=== PATIENT | female | born 1940 | race Two or more races ===

== ENCOUNTER 2022-01-14 10:29 | Inpatient (IN) | payer MEDICARE ==
[~2022-01-14] VITALS: Ht 149.9 cm; Wt 80.6 kg
[2022-01-14 12:07] LABS: Basophils # (auto) 0 10 ^3/uL (0-0.2); Basophils % (auto) 0.3 % (0.0-2.0); Eosinophils # (auto) 0 10 ^3/uL (0-0.8); Eosinophils % (auto) 0.1 % (0.0-7.0); Hematocrit 23.3 % (36.0-46.0); Hemoglobin 7.8 g/dL (12.2-16.2); Lymphocytes # (auto) 0.6 10 ^3/uL (0.4-5.4); Lymphocytes % (auto) 5.6 % (10.0-50.0); Mean Corpuscular Hemoglobin 33.3 pg (28.0-32.0); Mean Corpuscular Hgb Conc. 33.6 g/dL (32.0-36.0); Monocytes # (auto) 0.5 10 ^3/uL (0-1.3); Monocytes % (auto) 4.7 % (0.0-12.0); Neutrophils # (auto) 9.2 10 ^3/uL (1.6-8.6); Neutrophils % (auto) 89.3 % (37.0-80.0); Red Blood Cells 2.35 10^6/uL (4.0-5.20); Red Cell Distribution Width 16.4 % (11.8-14.3); White Blood Cell 10.3 10^3/uL (4.4-10.8)
[2022-01-14 12:10] LABS: Albumin 3.1 g/dL (3.4-5.0); BUN/Creatinine Ratio 25.3
[2022-01-14 12:13] LABS: Bilirubin, Total 0.8 mg/dL (0.2-1.0); Potassium 3.2 mmol/L (3.5-5.1); Total Protein 7.7 g/dL (6.4-8.2)
[2022-01-14] MEDS ORDERED: levoFLOXacin 500MG 100 ML IV ONE (14:30)
[2022-01-14 16:39] LABS: Urine Bacteria MOD /hpf (None Seen); Urine Blood 3+ /uL (Negative); Urine Budding Yeast OCCASIONAL /hpf (None Seen); Urine WBC 3727 /hpf (0 - 5)
[2022-01-14] MEDS ORDERED: DEXTROSE (50%) 50ML SYRG IV PRN (17:15)
[2022-01-14 19:23] LABS: Cholesterol 107 mg/dL (< 200); HDL Cholesterol 31 mg/dL (40-59); LDL Cholesterol 61 mg/dL (< 100); Triglycerides 83 mg/dL (< 150)
[2022-01-14] MEDS ORDERED: ALBUMIN 5% 250 ML IV ONE (20:45)
[2022-01-14] MEDS: InsuLIN REG 1unit/0.01ml Soln (100units/ml) SC SCH (22:00)
[2022-01-14] MEDS: ACCU-CHEK COMFORT CURVE STRIP VI SCH (22:09)
[2022-01-14] MEDS: HEPARIN SODIUM (PORCINE) 5000 UNITS/ML 1ML VIAL SC SCH (22:16)
[2022-01-14 23:00] VITALS: BP 100/49
[2022-01-15] VITALS (16 sets, daily range): BP systolic 74–104; BP diastolic 13–61
[2022-01-15 06:45] LABS: Albumin 2.8 g/dL (3.4-5.0); BUN/Creatinine Ratio 25.1; Bilirubin, Total 0.7 mg/dL (0.2-1.0); Calcium 8.2 mg/dL (8.5-10.1); Total Protein 6.8 g/dL (6.4-8.2)
[2022-01-15] MEDS: InsuLIN REG 1unit/0.01ml Soln (100units/ml) SC SCH ×4 (06:52→22:01)
[2022-01-15] MEDS: ACCU-CHEK COMFORT CURVE STRIP VI SCH ×4 (06:52→22:00)
[2022-01-15] MEDS ORDERED: SODIUM CHL 0.9% 1000 ML BAG XX ONE (07:00)
[2022-01-15] MEDS ORDERED: ALBUMIN 25% 100 ML IV PRN (07:15)
[2022-01-15 07:22] LABS: Basophils # (auto) 0 10 ^3/uL (0-0.2); Eosinophils # (auto) 0.1 10 ^3/uL (0-0.8); Lymphocytes # (auto) 0.7 10 ^3/uL (0.4-5.4); Lymphocytes % (auto) 14.2 % (10.0-50.0); Monocytes # (auto) 0.4 10 ^3/uL (0-1.3); Red Cell Distribution Width 16.5 % (11.8-14.3)
[2022-01-15 07:26] LABS: Basophils % (auto) 0.5 % (0.0-2.0); Hematocrit 19.2 % (36.0-46.0); Mean Corpuscular Hemoglobin 35.7 pg (28.0-32.0); Mean Corpuscular Hgb Conc. 34.6 g/dL (32.0-36.0); Monocytes % (auto) 8.5 % (0.0-12.0); Neutrophils % (auto) 75.8 % (37.0-80.0); Nucleated Red Blood Cells % 0.2 %; Red Blood Cells 1.85 10^6/uL (4.0-5.20); White Blood Cell 5.3 10^3/uL (4.4-10.8)
[2022-01-15 08:08] LABS: Hemoglobin 6.6 g/dL (12.2-16.2); Mean Corpuscular Volume 103.3 fL (80.0-100.0)
[2022-01-15] MEDS: cefTRIAXone 1GM/50ML D5W 50 ML IV SCH (09:00)
[2022-01-15] MEDS: HEPARIN SODIUM (PORCINE) 5000 UNITS/ML 1ML VIAL SC SCH ×2 (10:00→21:50)
[2022-01-15] MEDS: SODIUM CHLORIDE 0.9% 1,000 ML IV SCH (17:15)
[2022-01-15] MEDS: ACETAMINOPHEN 325 MG TAB PO PRN ×2 (19:30→21:03)
[2022-01-15] MEDS ORDERED: MID10T PO (20:06)
[2022-01-15] MEDS ORDERED: HYDR-4924 PO (20:19)
[2022-01-15] MEDS ORDERED: ASPI1TAB19 PO (20:19)
[2022-01-15] MEDS ORDERED: METO25TA36 PO (20:19)
[2022-01-15] MEDS ORDERED: ATO40T PO (20:19)
[2022-01-15] MEDS ORDERED: INSLISPI SC (20:57)
[2022-01-15] MEDS ORDERED: INSLANTI SC (20:57)
[2022-01-15 21:48] LABS: Hemoglobin 8.5 g/dL (12.2-16.2)
[2022-01-15] MEDS ORDERED: MIDODRINE HCL 10 MG TAB PO ONE (22:00)
[2022-01-16 05:54] VITALS: BP 106/17
[2022-01-16] MEDS: ACCU-CHEK COMFORT CURVE STRIP VI SCH ×4 (06:37→21:03)
[2022-01-16] MEDS: SODIUM CHLORIDE 0.9% 1,000 ML IV SCH ×2 (06:37→19:55)
[2022-01-16] MEDS: InsuLIN REG 1unit/0.01ml Soln (100units/ml) SC SCH ×4 (06:38→21:05)
[2022-01-16 07:49] VITALS: BP 106/52
[2022-01-16] MEDS: cefTRIAXone 1GM/50ML D5W 50 ML IV SCH (09:00)
[2022-01-16] MEDS: HEPARIN SODIUM (PORCINE) 5000 UNITS/ML 1ML VIAL SC SCH ×2 (10:00→21:03)
[2022-01-16] MEDS: MIDODRINE HCL 10 MG TAB PO SCH ×2 (10:00→17:00)
[2022-01-16] MEDS ORDERED: ONDANSETRON HCL 4 MG/2 ML VIAL IV PRN (10:30)
[2022-01-16] MEDS ORDERED: ZOLPIDEM TARTRATE 5 MG TAB PO PRN (10:30)
[2022-01-16 12:34] VITALS: BP 100/45
[2022-01-16 17:00] VITALS: BP 102/57
[2022-01-16] MEDS: MUPIROCIN 2% OINT 15gm or 22gm EACHNOSTRI SCH (20:51)
[2022-01-16 22:00] VITALS: BP 115/77
[2022-01-17 05:00] VITALS: BP 140/63
[2022-01-17] MEDS: InsuLIN REG 1unit/0.01ml Soln (100units/ml) SC SCH ×3 (06:48→16:51)
[2022-01-17] MEDS: ACCU-CHEK COMFORT CURVE STRIP VI SCH ×3 (06:48→16:51)
[2022-01-17] MEDS ORDERED: SODIUM CHL 0.9% 1000 ML BAG XX ONE (07:00)
[2022-01-17] MEDS ORDERED: Glucerna Carbsteady SHAKE Vanilla 8oz PO SCH (08:00)
[2022-01-17] MEDS: Glucerna Carbsteady SHAKE Stawberry 8oz PO SCH ×3 (08:00→12:00)
[2022-01-17] MEDS ORDERED: Glucerna Carbsteady SHAKE Chocolate 8oz PO SCH (08:00)
[2022-01-17 08:37] VITALS: BP 116/54
[2022-01-17] MEDS: cefTRIAXone 1GM/50ML D5W 50 ML IV SCH (10:04)
[2022-01-17] MEDS: MIDODRINE HCL 10 MG TAB PO SCH ×2 (10:05→16:51)
[2022-01-17] MEDS: SODIUM CHLORIDE 0.9% 1,000 ML IV SCH (10:05)
[2022-01-17] MEDS: MUPIROCIN 2% OINT 15gm or 22gm EACHNOSTRI SCH (10:05)
[2022-01-17] MEDS: HEPARIN SODIUM (PORCINE) 5000 UNITS/ML 1ML VIAL SC SCH (10:07)
[2022-01-17] MEDS ORDERED: LEVO500T31 PO (10:38)
[2022-01-17] MEDS ORDERED: FERR-7 PO (10:38)
[2022-01-17 13:00] VITALS: BP 135/46
[2022-01-17 15:22] VITALS: BP 116/54
[2022-01-17 15:57] LABS: Hematocrit 25.7 % (36.0-46.0); Hemoglobin 8.6 g/dL (12.2-16.2)
[2022-01-17] MEDS ORDERED: EPOETIN ALFA-EPBX 10,000 UNIT/1ML VIAL SC ONE (21:00)
== END 2022-01-17 17:19 | disposition home health service (06) | DRG 871 ==
LOC: EDBD 10:29 → ER 10:29 → TELE 17:07 → TELE-WESTW 23:00
PROVIDERS: ADMIT Registered Nurse; ATTEND Family Medicine
PROC: 5A1D70Z Performance of Urinary Filtration, Intermittent, Less than 6 Hours Per Day (ICD-10-PCS; 2022-01-15)
PROC: B54NZZA Ultrasonography of Left Upper Extremity Veins, Guidance (ICD-10-PCS; 2022-01-15)
PROC: 30233N1 Transfusion of Nonautologous Red Blood Cells into Peripheral Vein, Percutaneous Approach (ICD-10-PCS; 2022-01-15)
PROC: 5A1D70Z Performance of Urinary Filtration, Intermittent, Less than 6 Hours Per Day (ICD-10-PCS; principal; 2022-01-17)
DX: A41.9 Sepsis, unspecified organism (principal); N18.6 End stage renal disease; R65.21 Severe sepsis with septic shock; N39.0 Urinary tract infection, site not specified; I13.2 Hypertensive heart and chronic kidney disease with heart failure and with stage 5 chronic kidney disease, or end stage renal disease; I50.9 Heart failure, unspecified; E88.09 Other disorders of plasma-protein metabolism, not elsewhere classified; D63.8 Anemia in other chronic diseases classified elsewhere; Z20.822 Contact with and (suspected) exposure to COVID-19; E11.40 Type 2 diabetes mellitus with diabetic neuropathy, unspecified; E11.22 Type 2 diabetes mellitus with diabetic chronic kidney disease; I08.0 Rheumatic disorders of both mitral and aortic valves; E11.21 Type 2 diabetes mellitus with diabetic nephropathy; E66.9 Obesity, unspecified; F03.90 Unspecified dementia, unspecified severity, without behavioral disturbance, psychotic disturbance, mood disturbance, and anxiety; I25.10 Atherosclerotic heart disease of native coronary artery without angina pectoris; Z99.2 Dependence on renal dialysis; Z95.1 Presence of aortocoronary bypass graft; Z79.84 Long term (current) use of oral hypoglycemic drugs; Z95.0 Presence of cardiac pacemaker; Z68.33 Body mass index [BMI] 33.0-33.9, adult
CPT/HCPCS: 36415; 70450; 71045; 80053; 80061; 81001; 82270; 82962; 83036; 83605; 83880; 84484; 85014; 85018; 85025; 86850; 86900; 86901; 86920; 87040; 87081; 87086; 90935; 93005; 93306; 93886; 96365; 96367; G0378; J0696; J1642; J1815; J1956; P9047

== ENCOUNTER 2022-02-26 18:47 | Inpatient (IN) | payer MEDICARE ==
[~2022-02-26] VITALS: Ht 154.9 cm; Wt 88.7 kg
[~2022-02-26 18:47] MED LIST: ASPI1TAB19 PO; ATO40T PO; FERR-7 PO; HYDR-4924 PO; INSLANTI SC; INSLISPI SC; LEVO500T31 PO; METO25TA36 PO; MID10T PO
[2022-02-26] MEDS ORDERED: cefTRIAXone 1GM/50ML D5W 50 ML IV ONE (19:45)
[2022-02-26 19:49] LABS: Basophils # (auto) 0.1 10 ^3/uL (0-0.2); Basophils % (auto) 1.7 % (0.0-2.0); Eosinophils # (auto) 0 10 ^3/uL (0-0.8); Eosinophils % (auto) 0.4 % (0.0-7.0); Hematocrit 29.4 % (36.0-46.0); Hemoglobin 9.8 g/dL (12.2-16.2); Lymphocytes # (auto) 0.6 10 ^3/uL (0.4-5.4); Lymphocytes % (auto) 8.3 % (10.0-50.0); Mean Corpuscular Hemoglobin 33.7 pg (28.0-32.0); Mean Corpuscular Hgb Conc. 33.2 g/dL (32.0-36.0); Mean Corpuscular Volume 101.5 fL (80.0-100.0); Monocytes # (auto) 0.7 10 ^3/uL (0-1.3); Monocytes % (auto) 10.2 % (0.0-12.0); Neutrophils # (auto) 5.6 10 ^3/uL (1.6-8.6); Neutrophils % (auto) 79.4 % (37.0-80.0); Nucleated Red Blood Cells % 0.1 %; Red Blood Cells 2.89 10^6/uL (4.0-5.20); Red Cell Distribution Width 17.9 % (11.8-14.3)
[2022-02-26 20:08] LABS: Albumin 2.8 g/dL (3.4-5.0); Anion Gap 8 (5-15); BUN/Creatinine Ratio 12.6; Blood Urea Nitrogen 29 mg/dL (7-18); Carbon Dioxide 31 mmol/L (21-32); Chloride 96 mmol/L (98-107); GFR African American 26 mL/min; GFR Non-African American 22 mL/min; Glucose 168 mg/dL (74-106); Sodium 135 mmol/L (136-145)
[2022-02-26 20:23] LABS: Alanine Aminotransferase 22 U/L (13-56); Alkaline Phosphatase 147 U/L (45-117); Aspartate Aminotransferase 35 U/L (15-37); Bilirubin, Total 0.6 mg/dL (0.2-1.0); Total Protein 6.9 g/dL (6.4-8.2)
[2022-02-26 20:28] LABS: Potassium 2.7 mmol/L (3.5-5.1)
[2022-02-26] MEDS ORDERED: POTASSIUM CHL 20MEQ/100ML 100 ML IV ONE (21:00)
[2022-02-26] MEDS ORDERED: SODIUM CHLORIDE 0.9% 1,000 ML IV ONE ×2 (21:15)
[2022-02-27] VITALS (33 sets, daily range): BP systolic 98–157; BP diastolic 16–130
[2022-02-27] MEDS ORDERED: NITROGLYCERIN 0.4 MG SL TAB SL PRN
[2022-02-27] MEDS ORDERED: DEXTROSE (50%) 50ML SYRG IV PRN
[2022-02-27] MEDS ORDERED: MORPHINE SULFATE INJ 2 MG/ml SYRG IV PRN
[2022-02-27] MEDS ORDERED: ONDANSETRON HCL 4 MG/2 ML VIAL IV PRN
[2022-02-27] MEDS ORDERED: ACETAMINOPHEN 325 MG TAB PO PRN
[2022-02-27] MEDS ORDERED: NOREPINEPHRINE 8 MG/250ML KIT 0 ML IV ONE (03:48)
[2022-02-27] MEDS ORDERED: ALBUMIN 5% 250 ML IV ONE (04:00)
[2022-02-27] MEDS: PHENYLEPHRINE IV 250 ML IV SCH ×2 (04:45→10:01)
[2022-02-27 05:43] LABS: Basophils # (auto) 0 10 ^3/uL (0-0.2); Basophils % (auto) 0.4 % (0.0-2.0); Eosinophils # (auto) 0 10 ^3/uL (0-0.8); Eosinophils % (auto) 0.3 % (0.0-7.0); Hematocrit 28.7 % (36.0-46.0); Hemoglobin 9.6 g/dL (12.2-16.2); Lymphocytes # (auto) 0.6 10 ^3/uL (0.4-5.4); Lymphocytes % (auto) 7.1 % (10.0-50.0); Mean Corpuscular Hemoglobin 34.3 pg (28.0-32.0); Mean Corpuscular Hgb Conc. 33.6 g/dL (32.0-36.0); Monocytes # (auto) 0.6 10 ^3/uL (0-1.3); Neutrophils % (auto) 85.2 % (37.0-80.0); Nucleated Red Blood Cells % 0.2 %; Red Blood Cells 2.81 10^6/uL (4.0-5.20); White Blood Cell 8.2 10^3/uL (4.4-10.8)
[2022-02-27 06:02] LABS: Albumin 3.2 g/dL (3.4-5.0); BUN/Creatinine Ratio 12.7; Calcium 8.2 mg/dL (8.5-10.1)
[2022-02-27 06:06] LABS: Bilirubin, Total 0.6 mg/dL (0.2-1.0); Total Protein 6.8 g/dL (6.4-8.2)
[2022-02-27 06:46] LABS: Lactic Acid w/Reflex 2.3 mmol/L (0.4-2.0)
[2022-02-27] MEDS: InsuLIN REG 1unit/0.01ml Soln (100units/ml) SC SCH ×4 (07:04→21:23)
[2022-02-27] MEDS: ACCU-CHEK COMFORT CURVE STRIP VI SCH ×4 (07:05→21:23)
[2022-02-27] MEDS: cefTRIAXone 1GM/50ML D5W 50 ML IV SCH (09:59)
[2022-02-27] MEDS: PANTOPRAZOLE 40 MG TAB PO SCH (10:00)
[2022-02-27] MEDS ORDERED: MIDODRINE HCL 10 MG TAB PO SCH (10:00)
[2022-02-27] MEDS: ASPirin 81 mg TAB PO SCH (10:00)
[2022-02-27] MEDS ORDERED: POTASSIUM CHL 20MEQ/100ML 100 ML IV ONE (11:30)
[2022-02-27] MEDS ORDERED: NOREPINEPHRINE 8 MG/250ML KIT 250 ML IV ONE (11:34)
[2022-02-27] MEDS: SODIUM CHLORIDE 0.9% 1,000 ML IV SCH (11:43)
[2022-02-27] MEDS: NOREPINEPHRINE 8 MG/250ML KIT 250 ML IV SCH (12:05)
[2022-02-27] MEDS ORDERED: VANCOMYCIN 1GM/250ML 250 ML IV ONE (15:00)
[2022-02-27] MEDS ORDERED: SODIUM CHLORIDE 0.9% 500 ML IV ONE (15:00)
[2022-02-27 15:12] LABS: Urine Bacteria MOD /hpf (None Seen); Urine Blood 2+ /uL (Negative); Urine Budding Yeast MODERATE /hpf (None Seen); Urine Specific Gravity 1.023 (1.001-1.035); Urine WBC 12 /hpf (0 - 5)
[2022-02-27] MEDS: PHENYLEPHRINE INJ 80 MG in SODIUM CHL 0.9% 242 ML IV SCH (16:14)
[2022-02-27] MEDS ORDERED: ATORVASTATIN 20 MG TAB PO SCH (22:00)
[2022-02-28] VITALS (66 sets, daily range): BP systolic 82–166; BP diastolic 12–93
[2022-02-28] MEDS: SODIUM CHLORIDE 0.9% 1,000 ML IV SCH ×2 (02:00→04:10)
[2022-02-28] MEDS: NOREPINEPHRINE 8 MG/250ML KIT 250 ML IV SCH ×2 (04:18→23:55)
[2022-02-28 05:37] LABS: Basophils # (auto) 0 10 ^3/uL (0-0.2); Basophils % (auto) 0.5 % (0.0-2.0); Eosinophils # (auto) 0 10 ^3/uL (0-0.8); Hemoglobin 10.1 g/dL (12.2-16.2); Lymphocytes # (auto) 0.8 10 ^3/uL (0.4-5.4); Monocytes # (auto) 0.7 10 ^3/uL (0-1.3)
[2022-02-28 05:41] LABS: Eosinophils % (auto) 0.2 % (0.0-7.0); Hematocrit 30.1 % (36.0-46.0); Lymphocytes % (auto) 9.7 % (10.0-50.0); Mean Corpuscular Hemoglobin 34.4 pg (28.0-32.0); Mean Corpuscular Hgb Conc. 33.6 g/dL (32.0-36.0); Mean Corpuscular Volume 102.5 fL (80.0-100.0); Monocytes % (auto) 9.1 % (0.0-12.0); Neutrophils # (auto) 6.4 10 ^3/uL (1.6-8.6); Neutrophils % (auto) 80.5 % (37.0-80.0); Nucleated Red Blood Cells % 0.1 %; Red Blood Cells 2.93 10^6/uL (4.0-5.20); Red Cell Distribution Width 17.7 % (11.8-14.3)
[2022-02-28 05:52] LABS: INR 1.57 (0.9-1.15)
[2022-02-28] MEDS: ACCU-CHEK COMFORT CURVE STRIP VI SCH ×4 (06:41→21:56)
[2022-02-28] MEDS: InsuLIN REG 1unit/0.01ml Soln (100units/ml) SC SCH ×4 (06:42→22:00)
[2022-02-28] MEDS ORDERED: SODIUM CHL 0.9% 1000 ML BAG XX ONE (07:00)
[2022-02-28 09:28] LABS: Albumin 3.1 g/dL (3.4-5.0); Magnesium 2.1 mg/dL (1.6-2.6); Potassium 3.4 mmol/L (3.5-5.1)
[2022-02-28 09:35] LABS: BUN/Creatinine Ratio 11.9; Bilirubin, Total 0.7 mg/dL (0.2-1.0)
[2022-02-28] MEDS: ASPirin 81 mg TAB PO SCH (10:00)
[2022-02-28] MEDS: PANTOPRAZOLE 40 MG TAB PO SCH (10:00)
[2022-02-28] MEDS: cefTRIAXone 1GM/50ML D5W 50 ML IV SCH (11:44)
[2022-02-28] MEDS: PHENYLEPHRINE INJ 80 MG in SODIUM CHL 0.9% 242 ML IV SCH (12:15)
[2022-02-28] MEDS ORDERED: POTASSIUM CHL 20MEQ/100ML 100 ML IV ONE (13:30)
[2022-02-28] MEDS ORDERED: LORazepam 2MG/ML-1ML VIAL ONE (16:23)
[2022-02-28] MEDS ORDERED: MORPHINE SULFATE INJ 2 MG/ml SYRG ONE (16:23)
[2022-02-28] MEDS ORDERED: MORPHINE SULFATE INJ 2 MG/ml SYRG IV ONE (16:30)
[2022-02-28] MEDS ORDERED: LORazepam 2MG/ML-1ML VIAL IV ONE (16:30)
[2022-02-28] MEDS ORDERED: EPOETIN ALFA-EPBX 4,000 UNIT/ML VIAL SC ONE (21:00)
[2022-02-28] MEDS ORDERED: ALBUMIN 5% 250 ML IV ONE (23:15)
[2022-03-01] VITALS (63 sets, daily range): BP systolic 72–138; BP diastolic 12–24
[2022-03-01] MEDS ORDERED: PHENYLEPHRINE IV 250 ML IV ONE (02:12)
[2022-03-01] MEDS ORDERED: PHENYLEPHRINE HCL 10 MG/ML VL ONE ×2 (02:15→02:21)
[2022-03-01] MEDS: NOREPINEPHRINE 8 MG/250ML KIT 250 ML IV SCH (04:30)
[2022-03-01] MEDS: InsuLIN REG 1unit/0.01ml Soln (100units/ml) SC SCH ×3 (06:32→17:33)
[2022-03-01] MEDS: ACCU-CHEK COMFORT CURVE STRIP VI SCH ×3 (06:32→17:34)
[2022-03-01] MEDS ORDERED: PHENYLEPHRINE INJ 40 MG in SODIUM CHL 0.9% 246 ML IV SCH (08:00)
[2022-03-01] MEDS ORDERED: ETOMIDATE (2MG/ML) 20ML VIAL IV ONE ×2 (09:13→09:15)
[2022-03-01] MEDS: NOREPINEPHRINE BITARTRATE 16 MG in SODIUM CHL 0.9% 234 ML IV SCH ×2 (09:15→17:55)
[2022-03-01] MEDS ORDERED: fentaNYL Drip 2500mCg/250mlNS 250 ML IV ONE (09:20)
[2022-03-01] MEDS ORDERED: PROPOFOL 100 ML IV ONE (09:20)
[2022-03-01] MEDS ORDERED: VASOPRESSIN 50 UNITS in D5W 5% 247.5 ML IV SCH (09:45)
[2022-03-01] MEDS: ASPirin 81 mg TAB PO SCH (09:58)
[2022-03-01] MEDS ORDERED: MIDAZOLAM DRIP 50 mg/50mL 50 ML IV SCH ×2 (10:00→12:00)
[2022-03-01] MEDS ORDERED: PROPOFOL 100 ML IV SCH (10:00)
[2022-03-01] MEDS ORDERED: fentaNYL Drip 2500mCg/250mlNS 250 ML IV SCH (10:00)
[2022-03-01] MEDS ORDERED: PANTOPRAZOLE 40 MG/10 ML VIAL INJ IV SCH (10:00)
[2022-03-01] MEDS: cefTRIAXone 1GM/50ML D5W 50 ML IV SCH (10:41)
[2022-03-01] MEDS: EPINEPHrine HCL 250 ML IV SCH ×2 (10:58→17:55)
[2022-03-01] MEDS ORDERED: MIDAZOLAM DRIP 50 mg/50mL 50 ML IV ONE (11:30)
[2022-03-01] MEDS: PHENYLEPHRINE INJ 80 MG in SODIUM CHL 0.9% 242 ML IV SCH (12:35)
[2022-03-01] MEDS: SODIUM CHLORIDE 0.9% 1,000 ML IV SCH (13:53)
[2022-03-01] MEDS ORDERED: VANCOMYCIN PER PHARMACY 0 MG IV SCH (14:15)
[2022-03-01 14:52] LABS: Basophils # (auto) 0.1 10 ^3/uL (0-0.2); Eosinophils # (auto) 0.1 10 ^3/uL (0-0.8); Eosinophils % (auto) 0.4 % (0.0-7.0); Hemoglobin 9.6 g/dL (12.2-16.2); White Blood Cell 15.5 10^3/uL (4.4-10.8)
[2022-03-01 14:55] LABS: Basophils % (auto) 0.9 % (0.0-2.0); Hematocrit 30.6 % (36.0-46.0); Lymphocytes # (auto) 0.4 10 ^3/uL (0.4-5.4); Lymphocytes % (auto) 2.4 % (10.0-50.0); Mean Corpuscular Hemoglobin 33.5 pg (28.0-32.0); Mean Corpuscular Hgb Conc. 31.5 g/dL (32.0-36.0); Mean Corpuscular Volume 106.4 fL (80.0-100.0); Monocytes # (auto) 0.7 10 ^3/uL (0-1.3); Monocytes % (auto) 4.2 % (0.0-12.0); Neutrophils # (auto) 14.3 10 ^3/uL (1.6-8.6); Neutrophils % (auto) 92.1 % (37.0-80.0); Nucleated Red Blood Cells % 0.8 %; Red Blood Cells 2.88 10^6/uL (4.0-5.20); Red Cell Distribution Width 17.7 % (11.8-14.3)
[2022-03-01 15:05] LABS: INR 2.27 (0.9-1.15)
[2022-03-01 15:11] LABS: Albumin 2.9 g/dL (3.4-5.0); BUN/Creatinine Ratio 8.8; Calcium 7.8 mg/dL (8.5-10.1); Magnesium 2.2 mg/dL (1.6-2.6); Potassium 3.7 mmol/L (3.5-5.1)
[2022-03-01 15:14] LABS: Bilirubin, Total 1.4 mg/dL (0.2-1.0); Total Protein 6.3 g/dL (6.4-8.2)
[2022-03-01 15:17] LABS: Lactic Acid w/Reflex 7.9 mmol/L (0.4-2.0)
[2022-03-01] MEDS ORDERED: MORPHINE SULFATE INJ 2 MG/ml SYRG IV PRN (17:15)
[2022-03-01] MEDS ORDERED: LORazepam 2MG/ML-1ML VIAL IV PRN (17:15)
[2022-03-01] MEDS ORDERED: VANCOMYCIN 1GM/250ML 250 ML IV ONE (18:15)
[2022-03-01] MEDS ORDERED: SODIUM CHLORIDE 0.9% 1,000 ML IV SCH (19:00)
[2022-03-01] MEDS ORDERED: SODIUM CHLORIDE 0.9% 1,000 ML IV ONE (19:00)
[2022-03-01] MEDS ORDERED: CEFEPIME 1GM/ 50ML 50 ML IV SCH (22:00)
[2022-03-02] MEDS ORDERED: SODIUM CHL 0.9% 1000 ML BAG XX ONE (07:00)
== END 2022-03-01 22:00 | DRG 871 ==
LOC: EDBD 18:47 → ER 18:47 → TELE 23:57 → ICU CENTRL 02-27 08:58
PROVIDERS: ADMIT Nurse Practitioner; ATTEND Internal Medicine
PROC: 06HY33Z Insertion of Infusion Device into Lower Vein, Percutaneous Approach (ICD-10-PCS; principal; 2022-02-28)
PROC: 5A1935Z Respiratory Ventilation, Less than 24 Consecutive Hours (ICD-10-PCS; 2022-03-01)
PROC: 0BH17EZ Insertion of Endotracheal Airway into Trachea, Via Natural or Artificial Opening (ICD-10-PCS; 2022-03-01)
DX: A41.9 Sepsis, unspecified organism (principal); G93.41 Metabolic encephalopathy; J18.9 Pneumonia, unspecified organism; N18.6 End stage renal disease; I21.A1 Myocardial infarction type 2; I50.43 Acute on chronic combined systolic (congestive) and diastolic (congestive) heart failure; J96.01 Acute respiratory failure with hypoxia; E43 Unspecified severe protein-calorie malnutrition; I13.2 Hypertensive heart and chronic kidney disease with heart failure and with stage 5 chronic kidney disease, or end stage renal disease; R57.0 Cardiogenic shock; E11.40 Type 2 diabetes mellitus with diabetic neuropathy, unspecified; E11.65 Type 2 diabetes mellitus with hyperglycemia; E66.9 Obesity, unspecified; D63.8 Anemia in other chronic diseases classified elsewhere; E78.5 Hyperlipidemia, unspecified; E87.6 Hypokalemia; E88.09 Other disorders of plasma-protein metabolism, not elsewhere classified; I25.10 Atherosclerotic heart disease of native coronary artery without angina pectoris; I48.91 Unspecified atrial fibrillation; I27.20 Pulmonary hypertension, unspecified; Z20.822 Contact with and (suspected) exposure to COVID-19; I35.0 Nonrheumatic aortic (valve) stenosis; F03.90 Unspecified dementia, unspecified severity, without behavioral disturbance, psychotic disturbance, mood disturbance, and anxiety; I49.5 Sick sinus syndrome; Z95.0 Presence of cardiac pacemaker; Z68.33 Body mass index [BMI] 33.0-33.9, adult; Z74.01 Bed confinement status
CPT/HCPCS: 36415; 36600; 70450; 71045; 80053; 80061; 81001; 82728; 82805; 82962; 83036; 83540; 83550; 83605; 83735; 83880; 84132; 84443; 84484; 85025; 85610; 87040; 87070; 87081; 87086; 87205; 93005; 93925; 94002; 95819; 96361; 96365; 99291; A4565; C9113; G0378; J0171; J0696; J1642; J1815; J2250; J2405; J2704; J3480; J7060